=== PATIENT | female | born 1960 | race Caucasian/White ===

== ENCOUNTER → 2016-10-17 | Outpatient (CLI) | payer OTHER | LOC: LAB.R 08:00 | PROVIDERS: ATTEND Physician Assistant Medical | DX: N30.01 Acute cystitis with hematuria (principal) | CPT/HCPCS: 87086 ==

== ENCOUNTER 2016-11-01 14:08 | Outpatient (CLI) | payer OTHER ==
[2016-11-01] MEDS ORDERED: IOPAMIDOL-300 100 ML VIAL IVP ONE (16:31)
[2016-11-01] MEDS ORDERED: IOPAMIDOL-300 50 ML VIAL PO ONE (16:31)
--- NOTE | 2016-11-02 10:32 | CT Report ---
CT OF THE CHEST WITH CONTRAST: 11/01/2016 CLINICAL INDICATION: Breast cancer. TECHNIQUE: Axial CT images of the chest were obtained with 100 mL of Isovue-300 intravenously. FINDINGS: The heart and great vessels are unremarkable. No hilar or mediastinal lymphadenopathy is p resent. No axillary adenopathy is seen. There is mild peripheral fibrosis in the anterior right upper and middle lobes, likely postradiation changes. No suspicious pulmonary nodule or mass lesion is calderon ntified. No effusion or pneumothorax. The osseous structures demonstrate degenerative changes. IMPRESSION: LIKELY POSTRADIATION CHANGES IN THE ANTERIOR RIGHT LUNG. NO EVIDENCE OF THORACIC METASTA TIC DISEASE. In accordance with CT protocol optimization, one or more of the following dose reduction techniques w ere utilized for this exam: automated exposure control, adjustment of mA and/or KV based on patient size, or use of iterative reconstructive technique. JOB #: [id number] EXT JOB #:[id number]
--- NOTE | 2016-11-02 10:36 | CT Report ---
CT OF THE ABDOMEN AND PELVIS WITH CONTRAST: 11/01/2016 CLINICAL INDICATION: Breast cancer. TECHNIQUE: Axial CT images of the abdomen and pelvis were obtained with 100 mL of Isovue-300 intraven ously as well as oral contrast. FINDINGS: ABDOMEN: The liver demonstrates diffuse fatty infiltration. No focal parenchymal abnormality is appre ciated. The gallbladder is not dilated. The spleen, pancreas, kidneys and adrenal glands are unremark able. No bowel dilatation, free gas, or free fluid is present. No abdominal adenopathy is present. PELVIS: The appendix is seen in the right lower quadrant, and is normal in caliber. Sigmoid diverticu losis is present, without CT evidence of diverticulitis. No pelvic adenopathy or free fluid is presen t. The osseous structures demonstrate degenerative changes. IMPRESSION: FATTY INFILTRATION OF THE LIVER. NO EVIDENCE OF METASTATIC DISEASE. In accordance with CT protocol optimization, one or more of the following dose reduction techniques w ere utilized for this exam: automated exposure control, adjustment of mA and/or KV based on patient size, or use of iterative reconstructive technique. JOB #: [id number] EXT JOB #:[id number]
== END 2016-11-01 14:09 | disposition home or self-care (01) ==
LOC: EDBD → DI 14:08
PROVIDERS: ATTEND Internal Medicine Hematology & Oncology
DX: C50.919 Malignant neoplasm of unspecified site of unspecified female breast (principal); K76.0 Fatty (change of) liver, not elsewhere classified
CPT/HCPCS: 71260; 74177; Q9967

== ENCOUNTER 2017-01-23 08:00 | Outpatient (CLI) | payer OTHER | END 2017-01-23 08:01 | disposition home or self-care (01) | LOC: LAB.R 08:00 | PROVIDERS: ATTEND Internal Medicine | DX: N30.00 Acute cystitis without hematuria (principal) | CPT/HCPCS: 87086 ==

== ENCOUNTER 2017-05-24 13:23 | Outpatient (CLI) | payer OTHER ==
[2017-05-24] MEDS ORDERED: IOPAMIDOL-300 50 ML VIAL ONE (13:35)
[2017-05-24] MEDS ORDERED: IOPAMIDOL-300 100 ML VIAL ONE (13:36)
[2017-05-24] MEDS ORDERED: IOPAMIDOL-300 50 ML VIAL PO ONE (15:54)
[2017-05-24] MEDS ORDERED: IOPAMIDOL-300 100 ML VIAL IVP ONE (15:54)
--- NOTE | 2017-05-24 16:23 | CT Report ---
CT CHEST WITH CONTRAST: 05/24/2017 CLINICAL INDICATION: History of metastatic breast cancer. COMPARISON: 11/01/2016. TECHNIQUE: Axial CT images of the chest were obtained with 100 mL Isovue 300 intravenously FINDINGS: The heart and great vessels are unremarkable. No hilar or mediastinal lymphadenopathy is present. The lungs again demonstrate mild interstitial prominence in the anterior right lung, likely representing postradiation change. No suspicious pulmonary nodule or mass lesion is appreciated. No effusion or pneumothorax is present. The osseous structures demonstrate degenerative changes. IMPRESSION: STABLE LIKELY POSTRADIATION CHANGES IN THE ANTERIOR RIGHT LUNG. NO SUSPICIOUS PULMONARY NODULE OR MASS LESION. NO SIGNIFICANT INTERVAL CHANGE. In accordance with CT protocol optimization, one or more of the following dose reduction techniques were utilized for this exam: automated exposure control, adjustment of mA and/or KV based on patient size, or use of iterative reconstructive technique. TD: 05/24/2017 16:23
--- NOTE | 2017-05-24 16:27 | CT Report ---
CT OF THE ABDOMEN AND PELVIS WITH CONTRAST: 05/24/2017 CLINICAL INDICATION: History of metastatic breast cancer. TECHNIQUE: Axial CT images of the abdomen and pelvis were obtained with 100 mL Isovue 300 intravenously as well as oral contrast. COMPARISON: 11/01/2016. FINDINGS: ABDOMEN: The liver again demonstrates diffuse decrease in attenuation, compatible with fatty infiltration. No focal hepatic lesion is appreciated. The spleen, pancreas, kidneys and adrenal glands are unremarkable. The gallbladder is not dilated. No bowel dilatation, free gas, or free fluid is present. No abdominal adenopathy is seen. PELVIS: The patient is status post hysterectomy. Sigmoid diverticulosis is present, without CT evidence of diverticulitis. No pelvic adenopathy or free fluid is present. Osseous structures demonstrate degenerative changes. IMPRESSION: STABLE FATTY INFILTRATION OF THE LIVER. NO SIGNIFICANT INTERVAL CHANGE. In accordance with CT protocol optimization, one or more of the following dose reduction techniques were utilized for this exam: automated exposure control, adjustment of mA and/or KV based on patient size, or use of iterative reconstructive technique. TD: 05/24/2017 16:26
== END 2017-05-24 13:24 | disposition home or self-care (01) ==
LOC: DI 13:23
PROVIDERS: ATTEND Internal Medicine
DX: C50.919 Malignant neoplasm of unspecified site of unspecified female breast (principal); K76.0 Fatty (change of) liver, not elsewhere classified
CPT/HCPCS: 71260; 74177; Q9967